=== PATIENT | male | born 1980 | race Caucasian/White ===

== ENCOUNTER 2023-01-06 15:06 | Emergency (ER) | payer OTHER, SELFPAY ==
[2023-01-06 15:09] VITALS: BP 150/111; PULSE 91; RESP 18; TEMP 37.1; O2SAT 99; BMI 28.2
--- NOTE | 2023-01-06 15:25 | ED.BACK1 ---
HPI - Back Pain/Injury General Chief Complaint: Back Pain/Injury Stated Complaint: BACK INJURY/BWC Time Seen by Provider: 01/06/23 15:14 Source: patient Mode of arrival: walk-in Limitations: no limitations History of Present Illness HPI Narrative: patient was pulling on a heavy hose at work and twisting his torso when he suddenly felt sharp severe pain in the left mid to lower back. He described it as a sharp burning and said that it instantly froze his back.This occurred around 130pm. He took several minutes to get the back spasms to calm down enough that he could straighten his torso from the twisting motion he was in when the pain occurred. He had a similar situation with his back when he was in his 20s. He has never had back surgery and does not suffer from chronic back pain. 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 No bowel or bladder dysfunction. No lower extremity or groin weakness or sensory changes. Related Data Allergies Allergy/AdvReac Type Severity Reaction Status Date / Time No Known Drug Allergies Allergy Verified 01/06/23 15:14 Exam Narrative Exam Narrative: General: Alert, no acute distress, patient resting comfortably afebrile Skin: warm, intact, no pallor noted Head: Normocephalic, atraumatic Eye: Normal conjunctiva Respiratory: No acute distress Abdomen: Normal bowel sounds, soft, nontender, no masses detected. No rebound, guarding, or rigidity noted. Back: inspection of the back shows no obvious deformity, no swelling, no ecchymosis, contusion, abrasion, swelling, erythema, fluctuance or induration. Tenderness noted on the left side of the back from the lower thoracic spine through the mid lumbar spine. There is some associated spasm as well. No ecchymosis or skin break noted. Straight leg raise on left is positive. Straight leg raise on right is negative. No CVA tenderness noted bilaterally. Musculoskeletal: No deformity noted to bilateral lower extremities. normal pulses at DP and PT 2+ bilaterally and symmetrically. Normal 5/5 strength at ankles with dorsiflexion and plantar flexion. Patient is able to ambulate. Normal sensation noted to both lower extremities. Neurological: AAOx4, normal sensory and motor observed. L5-S1 reflexes intact symmetrically. DTR 2+ at patellar bilaterally. Able to stand and walk Psychiatric: Cooperative and interactive. Constitutional Vital Signs, click to edit/add: Last Vital Signs Temp 98.8 F 01/06/23 15:09 Pulse 91 H 01/06/23 15:09 Resp 18 01/06/23 15:09 BP 150/111 H 01/06/23 15:09 Pulse Ox 99 01/06/23 15:09 O2 Del Method Room Air 01/06/23 15:09 Course Vital Signs Vital signs: Vital Signs Temperature 98.8 F 01/06/23 15:09 Pulse Rate 91 H 01/06/23 15:09 Respiratory Rate 18 01/06/23 15:09 Blood Pressure 150/111 H 01/06/23 15:09 Pulse Oximetry 99 01/06/23 15:09 Oxygen Delivery Method Room Air 01/06/23 15:09 Temperature 98.8 F 01/06/23 15:09 Pulse Rate 91 H 01/06/23 15:09 Respiratory Rate 18 01/06/23 15:09 Blood Pressure 150/111 H 01/06/23 15:09 Pulse Oximetry 99 01/06/23 15:09 Oxygen Delivery Method Room Air 01/06/23 15:09 MDM - Back Pain/Injury MDM Narrative Medical decision making narrative: Patient without findings on physical exam to suggest acute neurosurgical emergency. Patient does not require radiographic imaging at this time. No indication for MRI. Patient given IM Solumedrol and IM Toradol in the ED. He will need to follow up with Occupational Health. Prescriptions given for Relafen and Robaxin and work limitations paperwork completed. After he got his injections of Toradol and Solumedrol, he got dizzy and became pale and sweaty, complaining that he thought he was going to pass out. Vital signs were normal but the ED nurse placed a peripheral IV and we gave the patient 1L NS IVF and monitored him. His symptoms resolved and he was able to be discharged home. Lab Data Labs: Lab Results 01/06/23 Range/Units 15:47 POC Glucose 77 (74-106) mg/dL Discharge Plan Discharge Chief Complaint: Back Pain/Injury Clinical Impression: Strain of lumbar region Patient Disposition: Home, Self-Care Time of Disposition Decision: 15:48 Instructions: Low Back Strain (ED), Lower Back Exercises (ED), Core Strengthening Exercises (ED) Stand Alone Forms: Portal Instructions Referrals: [facility] [Outside] - As soon as possible
[2023-01-06] MEDS: METHYLPREDNISOLONE SOD SUCC PF 125 MG/2 ML VIAL IM (15:33)
[2023-01-06] MEDS: KETOROLAC TROMETHAMINE 60 MG/2 ML VIAL IM (15:33)
[2023-01-06 15:48] LABS: Glucometer 77 mg/dL (74-106)
== END 2023-01-06 16:57 | disposition home or self-care (01) ==
PROVIDERS: Emergency Provider Emergency Medicine; PCP Internal Medicine
DX: S39.012A Strain of muscle, fascia and tendon of lower back, initial encounter (principal); X50.9XXA Other and unspecified overexertion or strenuous movements or postures, initial encounter
CPT/HCPCS: 36415; 96372; 99284; J2930